=== PATIENT | male | born 1950 | race Caucasian/White ===

== ENCOUNTER 2023-12-16 07:39 | Outpatient (OUT) | payer MEDICARE, OTHER, SELFPAY ==
[2023-12-16 08:28] LABS: Basophils Percent Auto 0.6 % (0.2-2.0); Eosinophils Absolute Auto 0.1 10^3/uL (0.0-0.7); Eosinophils Percent Auto 1.1 % (0.9-7.0); Hematocrit 42.2 % (42.0-54.0); Hemoglobin 14.1 g/dL (14.0-18.0); Immature Granulocytes Abs Auto 0.02 10^3/uL (0.00-0.03); Immature Granulocytes Pct Auto 0.3 % (0.0-0.5); Lymphocytes Absolute Auto 2.3 10^3/uL (1.2-3.8); Lymphocytes Percent Auto 33.2 % (20.5-60.0); Mean Corpuscular HGB Conc 33.4 g/dL (29.9-35.2); Mean Corpuscular Hemoglobin 32.3 pg (25.9-34.0); Mean Corpuscular Volume 96.6 fL (80.0-94.0); Mean Platelet Volume 11.7 fL (9.5-13.5); Monocytes Absolute Auto 0.7 10^3/uL (0.3-0.8); Monocytes Percent Auto 10.1 % (1.7-12.0); Neutrophils Absolute Auto 3.8 10^3/uL (1.4-6.5); Neutrophils Percent Auto 54.7 % (43.0-75.0); Platelet Count 184 10^3/uL (150-450); Red Blood Count 4.37 10^6/uL (4.70-6.10); Red Cell Distribution Width 12.5 % (11.0-15.0)
[2023-12-16 09:32] LABS: Estimated Average Glucose 114 mg/dL; Glycohemoglobin A1C 5.6 % (4.5-6.2)
[2023-12-16 10:44] LABS: Prostate Specific Antigen Scrn 5.79 ng/mL (<=4.00)
[2023-12-16 10:51] LABS: Alanine Aminotransferase 27 U/L (16-63); Albumin Globulin Ratio 1.1; Albumin Level 3.5 g/dL (3.4-5.0); Alkaline Phosphatase 58 U/L (46-116); Aspartate Amino Transferase 22 U/L (15-37); BUN Creatinine Ratio 17.4; Bilirubin Total 0.6 mg/dL (0.2-1.0); Calcium 8.9 mg/dL (8.5-10.1); Carbon Dioxide 27.1 mmol/L (21.0-32.0); Chloride 102 mmol/L (98-107); Chol HDL Ratio 2.8; Cholesterol 171 mg/dL (<=200); Estimated GFR (African America >60 (>=60); Estimated GFR (Non-African Ame >60 (>=60); Free T3 2.49 pg/mL (2.18-3.98); Globulin 3.2 g/dL; Glucose 99 mg/dL (74-106); HDL Cholesterol 61 mg/dL (40-60); Potassium 4.1 mmol/L (3.5-5.1); Sodium 138 mmol/L (136-145); Thyroid Stimulating Hormone 2.691 uIU/mL (0.358-3.740); Total Protein 6.7 g/dL (6.4-8.2); Triglycerides 50 mg/dL (<=150)
[2023-12-17 04:07] LABS: PSA, Free 0.79 ng/mL; Prostate Specific Ag 5.3 ng/mL (0.0-4.0)
== END 2023-12-16 07:40 | disposition home or self-care (01) ==
LOC: LAB 07:43
PROVIDERS: PCP Family Medicine; Visit Provider Family Medicine
DX: E78.00 Pure hypercholesterolemia, unspecified (principal); F32.9 Major depressive disorder, single episode, unspecified; E78.5 Hyperlipidemia, unspecified; R73.9 Hyperglycemia, unspecified; Z12.5 Encounter for screening for malignant neoplasm of prostate; Z12.12 Encounter for screening for malignant neoplasm of rectum; R97.20 Elevated prostate specific antigen [PSA]
CPT/HCPCS: 36415; 80053; 80061; 83036; 84153; 84154; 84436; 84443; 84481; 85025; G0103

== ENCOUNTER 2023-12-26 08:00 | Outpatient (REF) | payer MEDICARE, OTHER, SELFPAY ==
--- OUTSIDE RECORDS SUMMARY | 2023-12-27 10:03 | XMS_ITS | CCD ---
Author Organization [facility] Care Team Providers Care Chemist Name Role Phone MUSHTAQY ., DR SMITH Admitting Unavailable HOY ., DR SMITH Attending Unavailable HOY ., DR SMITH Primary Care Unavailable HOY ., DR SMITH Admitting Unavailable HOY ., DR SMITH Attending Unavailable HOY ., DR SMITH Primary Care Unavailable HOY ., DR SMITH Consulting Unavailable HOY ., DR SMITH Admitting Unavailable HOY ., DR SMITH Attending Unavailable HOY ., DR SMITH Primary Care Unavailable HOY ., DR SMITH Consulting Unavailable Preston GR Attending Unavailable Luis Miramontes Referring Unavailable Allergies Allergy Classification Reported Allergen(s) Allergy Type Date of Onset Reaction(s) Facility (1 source) Unable to obtain; Translations: [Unable to obtain] Propensity to adverse reactions (disorder) [facility] Repository Problems Problem Classification Problem Date Documented Date Episodic/Chronic Diabetes mellitus without complication (1 source) Other abnormal glucose; Translations: [OTHER ABNORMAL GLUCOSE] Onset: 3 Episodic Disorders of lipid metabolism (4 sources) Pure hypercholesterolemia, unspecified; Translations: [PURE HYPERCHOLESTEROLEMIA UNSPEC] Onset: 3 Chronic Malaise and fatigue (1 source) Other fatigue; Translations: [OTHER FATIGUE] Onset: 3 Episodic Other screening for suspected conditions (not mental disorders or infectious disease) (6 sources) Encounter for screening for malignant neoplasm of rectum; Translations: [Encounter for screening for malignant neoplasm of prostate] Onset: 3 Episodic Results Test Name Value Interpretation Reference Range Facil ity OCC BLD IMMUNO SCREENon OCCULT BLOOD Negative Normal NEGATIVE [facility] Comment on above: Performed By: #### O BSCRN #### [facility] [address] [address] [address] Sylvia Ham CBC AUTO DIFFon 02-23-2023 BASO # 0.0 103/ul Normal 0.0-0.1 [facility] Comment on above: Performed By: #### C BC #### [facility] [address] [place] [address] Dr. Sylvia Ham Basophils/100 WBC (Bld) 0.4 % Normal 0.2-2.0 [facility] Comment on above: Performed By: #### C BC #### [facility] [address] [place] [address] Dr. Sylvia Ham EO # 0.1 103/ul Normal 0.0-0.7 [facility] Comment on above: Performed By: #### C BC #### [facility] [address] [place] [address] Dr. Sylvia Ham Eosinophils/100 WBC (Bld) 1.1 % Normal 0.9-7.0 [facility] Comment on above: Performed By: #### C BC #### [facility] [address] [place] [address] Dr. Sylvia Ham Erythrocyte distribution width (RBC) [Ratio] 12.8 % Normal 11.0-15.0 [facility] Comment on above: Performed By: #### C BC #### [facility] [address] [place] [address] Dr. Sylvia Ham Hematocrit (Bld) [Volume fraction] 43.6 % Normal 42.0-54.0 [facility] Comment on above: Performed By: #### C BC #### [facility] [address] [place] [address] Dr. Sylvia Ham Hemoglobin (Bld) [Mass/Vol] 15.1 g/dL Normal 14.0-18.0 [facility] Comment on above: Performed By: #### C BC #### [facility] [address] [place] [address] Dr. Sylvia Ham IG # 0.01 10e3/ul Normal 0.00-0.03 [facility] Comment on above: Performed By: #### C BC #### [facility] [address] [place] [address] Dr. Sylvia Ham IG % 0.1 % Normal 0.0-0.5 [facility] Comment on above: Performed By: #### C BC #### [facility] [address] [place] [address] Dr. Sylvia Ham LYMPH # 2.2 103/ul Normal 1.2-3.8 [facility] Comment on above: Performed By: #### C BC #### [facility] [address] [place] [address] Dr. Sylvia Ham Lymphocytes/100 WBC (Bld) 26.9 % Normal 20.5-60.0 [facility] Comment on above: Performed By: #### C BC #### [facility] [address] [place] [address] Dr. Sylvia Ham MANUAL DIFF REQ NO Normal [facility] Comment on above: Performed By: #### C BC #### [facility] [address] [place] [address] Dr. Sylvia Ham MCH (RBC) [Entitic mass] 32.7 pg Normal 25.9-34.0 [facility] Comment on above: Performed By: #### C BC #### [facility] [address] [place] [address] Dr. Sylvia Ham MCHC (RBC) [Mass/Vol] 34.6 g/dL Normal 29.9-35.2 [facility] Comment on above: Performed By: #### C BC #### [facility] [address] [place] [address] Dr. Sylvia Ham MCV (RBC) [Entitic vol] 94.4 fL Critically high 80.0-94.0 [facility] Comment on above: Performed By: #### C BC #### [facility] [address] [place] [address] Dr. Sylvia Ham MONO # 0.7 103/ul Normal 0.3-0.8 [facility] Comment on above: Performed By: #### C BC #### [facility] [address] [place] [address] Dr. Sylvia Ham Monocytes/100 WBC (Bld) 9.3 % Normal 1.7-12.0 [facility] Comment on above: Performed By: #### C BC #### [facility] [address] [address] [address] Sylvia Ham NEUT # 5.0 103/ul Normal 1.4-6.5 [facility] Comment on above: Performed By: #### C BC #### [facility] [address] [address] [address] Sylvia Ham Neutrophils/100 WBC (Bld) 62.2 % Normal 43.0-75.0 [facility] Comment on above: Performed By: #### C BC #### [facility] [address] [address] [address] Sylvia Ham Platelet mean volume (Bld) [Entitic vol] 11.4 fL Normal 9.5-13.5 [facility] Comment on above: Performed By: #### C BC #### [facility] [address] [address] [address] Sylvia Ham PLT 189 103/ul Normal 150-450 [facility] Comment on above: Performed By: #### C BC #### [facility] [address] [address] [address] Sylvia Ham RBC 4.62 106/ul Critically low 4.70-6.10 [facility] Comment on above: Performed By: #### C BC #### [facility] [address] [address] [address] Sylvia Ham WBC 8.0 103/ul Normal 4.0-11.0 [facility] Comment on above: Performed By: #### C BC #### [facility] [address] [address] [address] Sylvia Ham FREE T3on 11-26-2022 FREE T3 2.47 pg/mlL Normal 2.18-3.98 [facility] Comment on above: Performed By: #### L IPID, TSH, CMP, T4, FT3 #### [facility] [address] [address] [address] Sylvia Ham GLYCOHEMOGLOBIN A1Con 2022 ADA RECOMMENDATION SEE BELOW Normal [facility] Comment on above: Result Comment: ADA RECOMMENDED LIMIT 4.0 - 6.0 ADA THERAPEUTIC TARGET < 7.0 ACTION SUGGESTED > 7.0 Performed By: #### A 1C #### [facility] [address] [place] [address] Dr. Sylvia Ham Glucose [Mass/Vol] 105 mg/dL Normal [facility] Comment on above: Performed By: #### A 1C #### [facility] [address] [place] [address] Dr. Sylvia Ham HbA1c (Bld) [Mass fraction] 5.3 % Normal 4.5-6.2 [facility] Comment on above: Performed By: #### A 1C #### [facility] [address] [place] [address] Dr. Sylvia Ham LIPID PROFILEon 11-26-2022 CHOL-HDL RATIO NORM SEE BELOW Normal [facility] Comment on above: Result Comment: 3.3 - 4.4 LOW RISK 4.4 - 7.1 AVERAGE RISK 7.1 - 11.0 MODERATE RISK >11.0 HIGH RISK Performed By: #### L IPID, TSH, CMP, T4, FT3 #### [facility] [address] [place] [address] Dr. Sylvia Ham Cholesterol [Mass/Vol] 164 mg/dL Normal <=200 [facility] Comment on above: Performed By: #### L IPID, TSH, CMP, T4, FT3 #### [facility] [address] [place] [address] Dr. Sylvia Ham Cholesterol in HDL [Mass/Vol] 55 mg/dL Normal 40-60 [facility] Comment on above: Performed By: #### L IPID, TSH, CMP, T4, FT3 #### [facility] [address] [address] [address] Sylvia Ham Cholesterol in LDL [Mass/Vol] 98.0 mg/dL Normal [facility] Comment on above: Performed By: #### L IPID, TSH, CMP, T4, FT3 #### [facility] [address] [place] [address] Dr. Sylvia Ham Cholesterol.total/Cho lesterol in HDL [Mass ratio] 3.0 {ratio} Normal [facility] Comment on above: Performed By: #### L IPID, TSH, CMP, T4, FT3 #### [facility] [address] [address] [address] Sylvia Ham HDL NORMAL > or = 60 mg/dl - LOW CARDIOVASCULAR RISK <40 mg/dl - HIGH CARDIOVASCULAR RISK Normal [facility] Comment on above: Performed By: #### L IPID, TSH, CMP, T4, FT3 #### [facility] [address] [address] [address] Sylvia Ham LDL CALC NORMAL SEE BELOW Normal [facility] Comment on above: Result Comment: <100 mg/dl OPTIMAL 100 - 129 mg/dl NEAR OR ABOVE OPTIMAL 130 - 159 mg/dl BORDERLINE HIGH 160 - 189 mg/dl HIGH >190 mg/dl VERY HIGH Performed By: #### L IPID, TSH, CMP, T4, FT3 #### [facility] [address] [address] [address] Sylvia Ham Triglyceride [Mass/Vol] 55 mg/dL Normal <=150 [facility] Comment on above: Performed By: #### L IPID, TSH, CMP, T4, FT3 #### [facility] [address] [address] [address] Sylvia Ham VLDL CALC 11.0 mg/dL Normal [facility] Comment on above: Performed By: #### L IPID, TSH, CMP, T4, FT3 #### [facility] [address] [address] [address] Sylvia Ham PROF 14(COMP METB)on 023 Albumin [Mass/Vol] 3.8 g/dL Normal 3.4-5.0 [facility] Comment on above: Performed By: #### L IPID, TSH, CMP, T4, FT3 #### [facility] [address] [address] [address] Sylvia Ham Albumin/Globulin [Mass ratio] 1.3 {ratio} Normal [facility] Comment on above: Performed By: #### L IPID, TSH, CMP, T4, FT3 #### [facility] [address] [place] [address] Dr. Sylvia Ham ALP [Catalytic activity/Vol] 66 U/L Normal 46-116 [facility] Comment on above: Performed By: #### L IPID, TSH, CMP, T4, FT3 #### [facility] [address] [place] [address] Dr. Sylvia Ham ALT [Catalytic activity/Vol] 29 U/L Normal 16-63 [facility] Comment on above: Performed By: #### L IPID, TSH, CMP, T4, FT3 #### [facility] [address] [place] [address] Dr. Sylvia Ham Anion gap [Moles/Vol] 9.7 mmol/L Normal [facility] Comment on above: Performed By: #### L IPID, TSH, CMP, T4, FT3 #### [facility] [address] [place] [address] Dr. Sylvia Ham AST [Catalytic activity/Vol] 25 U/L Normal 15-37 [facility] Comment on above: Performed By: #### L IPID, TSH, CMP, T4, FT3 #### [facility] [address] [place] [address] Dr. Sylvia Ham Bilirubin [Mass/Vol] 0.6 mg/dL Normal 0.2-1.0 [facility] Comment on above: Performed By: #### L IPID, TSH, CMP, T4, FT3 #### [facility] [address] [place] [address] Dr. Sylvia Ham Calcium [Mass/Vol] 9.2 mg/dL Normal 8.5-10.1 [facility] Comment on above: Performed By: #### L IPID, TSH, CMP, T4, FT3 #### [facility] [address] [place] [address] Dr. Sylvia Ham Chloride [Moles/Vol] 105 mmol/L Normal 98-107 [facility] Comment on above: Performed By: #### L IPID, TSH, CMP, T4, FT3 #### [facility] [address] [address] [address] Sylvia Ham CO2 [Moles/Vol] 30.0 mmol/L Normal 21.0-32.0 [facility] Comment on above: Performed By: #### L IPID, TSH, CMP, T4, FT3 #### [facility] [address] [address] [address] Sylvia Ham Creatinine [Mass/Vol] 0.84 mg/dL Normal 0.70-1.30 [facility] Comment on above: Performed By: #### L IPID, TSH, CMP, T4, FT3 #### [facility] [address] [place] [address] Dr. Sylvia Ham EGFR-AF SAMOAN >60 Normal >=60 [facility] Comment on above: Performed By: #### L IPID, TSH, CMP, T4, FT3 #### [facility] [address] [place] [address] Dr. Sylvia Ham EGFR-NON AF SAMOAN >60 Normal >=60 [facility] Comment on above: Performed By: #### L IPID, TSH, CMP, T4, FT3 #### [facility] [address] [place] [address] Dr. Sylvia Ham Globulin (S) [Mass/Vol] 3.0 g/dL Normal [facility] Comment on above: Performed By: #### L IPID, TSH, CMP, T4, FT3 #### [facility] [address] [place] [address] Dr. Sylvia Ham Glucose [Mass/Vol] 107 mg/dL Critically high 74-106 [facility] Comment on above: Performed By: #### L IPID, TSH, CMP, T4, FT3 #### [facility] [address] [place] [address] Dr. Sylvia Ham Potassium [Moles/Vol] 4.7 mmol/L Normal 3.5-5.1 [facility] Comment on above: Performed By: #### L IPID, TSH, CMP, T4, FT3 #### [facility] [address] [place] [address] Dr. Sylvia Ham Protein [Mass/Vol] 6.8 g/dL Normal 6.4-8.2 [facility] Comment on above: Performed By: #### L IPID, TSH, CMP, T4, FT3 #### [facility] [address] [place] [address] Dr. Sylvia Ham Sodium [Moles/Vol] 140 mmol/L Normal 136-145 [facility] Comment on above: Performed By: #### L IPID, TSH, CMP, T4, FT3 #### [facility] [address] [address] [address] Sylvia Ham Urea nitrogen [Mass/Vol] 20.0 mg/dL Critically high 7.0-18.0 [facility] Comment on above: Performed By: #### L IPID, TSH, CMP, T4, FT3 #### [facility] [address] [place] [address] Dr. Sylvia Ham Urea nitrogen/Creatinine [Mass ratio] 23.8 mg/mg Normal [facility] Comment on above: Performed By: #### L IPID, TSH, CMP, T4, FT3 #### [facility] [address] [address] [address] Sylvia Ham T4on 11-26-2022 T4 [Mass/Vol] 7.60 ug/dL Normal 4.50-12.10 [facility] Comment on above: Performed By: #### L IPID, TSH, CMP, T4, FT3 #### [facility] [address] [place] [address] Dr. Sylvia Ham TSHon 11-26-2022 TSH 2.833 uIU/mL Normal 0.358-3.740 [facility] Comment on above: Performed By: #### L IPID, TSH, CMP, T4, FT3 #### [facility] [address] [place] [address] Dr. Sylvia Ham Encounters Encounter Date Encounter Type Care Provider Facility Start: 12-27-2023 ambulatory Preston Harris ty:[facility]ILADIS Bhatia Start: 12-17-2023 ambulatory Preston GR Facility :[facility]IS Muñoz Start: 12-07-2022 End: 12-07-[address] LUIS MIRAMONTES . Facility:[facility] Start: 11-26-2022 End: 11-27-[address] LUIS MIRAMONTES . Facility:[facility] Start: 02-15-[address] LUIS MIRAMONTES . Facili ty:[facility] Procedures Date Procedure Procedure Detail Performing Clinician Start: 11-26-[address] SMITH MIRAMONTES . Comment on above: Performed By: #### P [facility] #### [facility] [address] [place] [address] Dr. Sylvia Ham Payers Date Payer Category Payer Medicare [id number] 1958 Self-pay [id number] 1958 Unknown [id number] 1950 Unknown [id number] 2.16.84 [id number] 1950 Unknown [id number] 2.16.84 [id number] 1950 Unknown [id number] 2.16.84 [id number] 1950 Unknown [id number] 2.16.8 [id number] 1950 Unknown [id number] 2.16.8 [id number] Summary Purpose Family History No Family History Records FoundNo Family History Records Found Advance Directives No Advanced Directives Records FoundNo Advanced Directives Records Found Additional Source Comments (unrecognized sect ion and content) No Status Records FoundNo Status Records Found INFORMATION SOURCE (unrecogn ized section and content) DATE CREATED AUTHOR 12/09/2022 [facility] DATE CREATED AUTHOR AUTHOR'S FABIIZ ATVERO 12/26/2023 [facility] FOR RECORDS PERTAINING TO PATIENTS WHO ARE OR HAVE BEEN ENROLLED IN A CHEMICAL DEPENDENCY/SUBSTANCEABUSE PROGRAM, SOME INFORMATION MAY BE OMITTED. This clinical summary was aggregated from multiple sources. Caution should be exercised in using it in the provision of clinical care. This summary normalizes information from multiple sources, and as a consequence, information in this document may materially change the coding, format and clinical context of patient data. In addition, data may be omitted in some cases. CLINICAL DECISIONS SHOULD BE BASED ON THE PRIMARY CLINICAL RECORDS. [facility] [employer] [facility]. provides no warranty or guarantee of the accuracy or completeness of information in this document.
[2023-12-27 10:31] LABS: Occult Blood Negative
== END 2023-12-26 08:01 | disposition home or self-care (01) ==
LOC: LAB 08:00
PROVIDERS: PCP Family Medicine; Visit Provider Family Medicine
DX: E78.00 Pure hypercholesterolemia, unspecified (principal); F32.9 Major depressive disorder, single episode, unspecified; R73.9 Hyperglycemia, unspecified; Z12.5 Encounter for screening for malignant neoplasm of prostate; Z12.12 Encounter for screening for malignant neoplasm of rectum
CPT/HCPCS: G0328

== ENCOUNTER 2024-01-19 12:25 | Outpatient (OUT) | payer MEDICARE, OTHER, SELFPAY ==
--- OUTSIDE RECORDS SUMMARY | 2024-01-19 12:48 | XMS_ITS | CCD ---
Author Organization [facility] Care Team Providers Care Senior Project Manager Name Role Phone FE ., DR SMITH Admitting Unavailable HOY ., DR SMITH Attending Unavailable HOY ., DR SMITH Primary Care Unavailable HOY ., DR SMITH Admitting Unavailable HOY ., DR SMITH Attending Unavailable HOY ., DR SMITH Primary Care Unavailable HOY ., DR SMITH Consulting Unavailable HOY ., DR SMITH Admitting Unavailable HOY ., DR SMITH Attending Unavailable HOY ., DR SMITH Primary Care Unavailable MUSHTAQY ., DR SMITH Consulting Unavailable Luis Miramontes Primary Care Physician PENNIE DICKERSON Attending Unavailable Preston GR Attending Unavailable Preston GR Attending Unavailable Luis Miramontes Referring Unavailable Preston GR Attending Unavailable Allergies Allergy Classification Reported Allergen(s) Allergy Type Date of Onset Reaction(s) Facility (1 source) Unable to obtain; Translations: [Unable to obtain] Propensity to adverse reactions (disorder) [facility] Repository Medications Current Medications Medication Drug Class(es) Dates Sig (Normalized) Sig (Original) aspirin 81 mg delayed release oral tablet (1 source) Platelet Aggregation Inhibitor, Nonsteroidal Anti-inflammatory Drug Start: 12-27-2023 take 1 mg by mouth once daily aspirin 81 mg Oral EC Tab mg tab(s), Oral, Daily, Refills(s) 0 Start Date: 12/27/23 Status: Ordered ciprofloxacin 500 mg oral tablet (1 source) Quinolone Antimicrobial Start: 12-27-2023 take 1 tablet by mouth twice daily Cipro 500 mg Tab 500 mg = 1 tab(s), Oral, BID, start 3 days prior to procedure., # 14 tab(s), Refills(s) 0, Pharmacy: [facility]/pharmacy #[id number], 178, cm, 12/27/23 10:08:00 EDT, Height/Length Dosing, 116, kg, 12/27/23 10:08:00 EDT, Weight Dosing Start Date: 12/27/23 Status: Ordered Completed/Discontinued Medications Medication Drug Class(es) Dates Sig (Normalized) Sig (Original) citalopram 10 mg oral tablet (1 source) Serotonin Reuptake Inhibitor Start: 12-23-2023 citalopram 10 mg Tab 90 EA, 0 Refill(s), TAKE 1 TABLET BY MOUTH EVERY DAY, Refills(s) 0 Start Date: 12/23/23 Status: Ordered simvastatin 20 mg oral tablet (1 source) HMG-CoA Reductase Inhibitor Start: 12-23-2023 simvastatin 20 mg Tab 90 EA, 0 Refill(s), TAKE 1 TABLET BY MOUTH ONCE EVERY DAY AT NIGHT, Refills(s) 0 Start Date: 12/23/23 Status: Ordered Problems Problem Classification Problem Date Documented Da te Episodic/Chronic Diabetes mellitus without complication (1 source) Other abnormal glucose; Translations: [OTHER ABNORMAL GLUCOSE] Onset: 11-30-2022 Episodic Disorders of lipid metabolism (5 sources) Pure hypercholesterolemi a, unspecified; Translations: [Hyperlipidemia] Onset: 05-31-2020 Chronic Hyperplasia of prostate (2 sources) Benign prostatic hypertrophy without outflow obstruction; Translations: [Nodular prostate without lower urinary tract symptoms] Onset: 12-27-2023 Chronic Malaise and fatigue (1 source) Other fatigue; Translations: [OTHER FATIGUE] Onset: 11-30-2022 Episodic Other aftercare (1 source) Long-term current use of aspirin; Translations: [prison (current) use of aspirin] Onset: 12-27-2023 Episodic Other nervous system disorders (1 source) Aphasia Onset: 05-31-2020 12-23-2023 Chronic Other screening for suspected conditions (not mental disorders or infectious disease) (8 sources) Encounter for screening for malignant neoplasm of rectum; Translations: [Encounter for screening for malignant neoplasm of prostate] Onset: 11-30-2022 Episodic Paralysis (1 source) 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-23-2023 Chronic Unclassified (1 source) Long-term current use of aspirin 12-27-2023 Results Test Name Value Interpretation Reference Range Facility Consent for Procedure/Surger kalyan 12-28-2023 Consent for Procedure/Surgery [id number] .00TIFF [facility] Ambulatory Visit Summaryon 0 12-27-2023 Ambulatory Visit Summary OG SINGLETARY :1950 Visit Date:12/27/2023 Ambulatory Visit Instructions Your Diagnosis Elevated PSA Prostate nodule Aspirin long-term use Your Care Team Attending Physician - Preston GR MD Primary Care Physician - Luis Miramontes MD Referring Physician - Luis Miramontes MD This Is Your Medications List ciprofloxacin (Cipro 500 mg Tab) Contact prescribing physician if questions or concerns aspirin (aspirin 81 mg Oral EC Tab) citalopram (citalopram 10 mg Tab) simvastatin (simvastatin 20 mg Tab) Discharge Vitals Temperature (Temporal Artery) 36.8 ?C Heart Rate (Peripheral) 101 Respiratory Rate 18 Blood Pressure 138/75 Height 178 cm Height 70 in Weight 116 kg Weight 255.2 lb BMI 36.61 What to do next Scheduled Follow-Up Appointments Wednesday 9:15 AM EDT With: Preston GR MD Where: [facility] Formson 12-27-2023 Forms [id number] .00TIFF [facility] Patient Educationon 12-27-19 24 Patient Education Oncology Transrectal Ultrasound-Guided Prostate Biopsy A transrectal ultrasound-guided prostate biopsy is a procedure to remove samples of prostate tissue for testing. The prostate is a walnut-sized gland that is located below the bladder and in front of the rectum. During this procedure, a small device (probe) is lubricated and put inside the rectum. The probe sends out sound waves that make a picture of the prostate and surrounding tissues (transrectal ultrasound). The images are used to help guide the process of removing the samples. The samples are taken to a lab to be checked for prostate cancer. This procedure is usually done to evaluate the prostate gland of men who have raised (elevated) levels of prostate-specific antigen (PSA), which can be a sign of prostate cancer or prostate enlargement related to aging (benign prostatic hyperplasia, or BPH). Tell a health care provider about: ? Any allergies you have. ? All medicines you are taking, including vitamins, herbs, eye drops, creams, and joeo-syr-zczvvff medicines. ? Any problems you or family members have had with anesthetic medicines. ? Any bleeding problems you have. ? Any surgeries you have had. ? Any medical conditions you have. ? Any prostate infections you have had. What are the risks? Generally, this is a safe procedure. However, problems may occur, including: ? Prostate infection. ? Bleeding from the rectum. ? Blood in the urine. ? Allergic reactions to medicines. ? Damage to surrounding structures such as blood vessels, organs, or muscles. ? Difficulty passing urine. ? Nerve damage. This is usually temporary. What happens before the procedure? Medicines Ask your health care provider about: ? Changing or stopping your regular medicines. This is especially important if you are taking diabetes medicines or blood thinners. ? Taking medicines such as aspirin and ibuprofen. These medicines can thin your blood. Do not take these medicines unless your health care provider tells you to take them. ? Taking wbfk-bou-icxxozq medicines, vitamins, herbs, and supplements. General instructions ? Follow instructions from your health care provider about eating and drinking. In most instances, you will not need to stop eating and drinking completely before the procedure. ? You will be given an enema. During an enema, a liquid is injected into your rectum to clear out waste. ? You may have a blood or urine sample taken. ? Ask your health care provider what steps will be taken to help prevent infection. These steps may include: ? Washing skin with a germ-killing soap. ? Taking antibiotic medicine. ? If you will be going home right after the procedure, plan to have a responsible adult: ? Take you home from the hospital or clinic. You will not be allowed to drive. ? Care for you for the time you are told. What happens during the procedure? ? An IV will be inserted into one of your veins. ? You will be given one or both of the following: ? A medicine to help you relax (sedative). ? A medicine to numb the area (local anesthetic). ? You will be placed on your left side, and your knees will be bent toward your chest. ? A probe with lubricated gel will be placed into your rectum, and images will be taken of your prostate and surrounding structures. ? Numbing medicine will be injected into your prostate. ? A biopsy needle will be inserted through your rectum or perineum and guided to your prostate using the ultrasound images. ? Prostate tissue samples will be removed, and the needle and probe will then be removed. ? The biopsy samples will be sent to a lab to be tested. The procedure may vary among health care providers and hospitals. What happens after the procedure? ? Your blood pressure, heart rate, breathing rate, and blood oxygen level will be monitored until you leave the hospital or clinic. ? You may have some discomfort in the rectal area. You will be given pain medicine as needed. ? If you were given a sedative during the procedure, it can affect you for several hours. Do not drive or operate machinery until your health care provider says that it is safe. ? It is up to you to get the results of your procedure. Ask your health care provider, or the department that is doing the procedure, when your results will be ready. ? Keep all follow-up visits. This is important. Summary ? A transrectal ultrasound-guided biopsy removes samples of tissue from your prostate using ultrasound-guided sound waves to help guide the process. ? This procedure is usually done to evaluate the prostate gland of men who have raised (elevated) levels of prostate-specific antigen (PSA), which can be a sign of prostate cancer or prostate enlargement related to aging. ? After your procedure, you may feel some discomfort in the rectal area. ? Plan to have a responsible adult take you home from the hospital or clinic, and follow up with y (more content not included)... Normal [facility] Physician Referralon 024 Physician Referral [id number] .00TIFF Normal [facility] Screenson 12-27-2023 Screens [id number] .00TIFF Normal [facility] Urology Office/Clinic Noteon 12-27-2023 Urology Office/Clinic Note Chief Complaint elevated PSA HPI Staff Evaluation requested by Dr Luis Miramontes due to elevated PSA. Pt is a new pt. Never before seen in our office. PSA 05/17/20- 2.15 12/16/23- 5.79 12/16/23- 5.3 & 14.9 IPSS score is 4 today Dysuria: no Incomplete bladder emptying: no Hematuria: no Frequency: less than 1 in 5x per IPSS Urgency: no Nocturia: 1x Stream: weak and straining less than 1 in 5x, no intermittency Leaking: no Post void dripping: no Wearing pads/ Depends: no Urge incontinence: no Stress incontinence: no Incontinence without Sensory Awareness: no Abdominal pain: no Flank pain: no Sexual complaints: no History of Present Illness Tests reviewed: reviewed UA and outside records. I have reviewed the previous health record information and history for this patient from external provider. I have reviewed and verified the staff HPI to be accurate for this encounter. There have been no associated fever, chills, flank pain, or blood in the urine. Denies any urinary infections since last encounter. Review of Systems PHQ Score Initial Depression Screen Score: 0 SCORE ROS - Provider Constitutional: denies weight loss, denies hot flashes. Eyes: denies eye problems. Gastrointestinal: denies nausea, denies vomiting. Cardiovascular: denies chest pain or angina. Integumentary: no dryness Musculoskeletal: denies musculoskeletal symptoms. ENMT: denies otolaryngeal symptoms. Respiratory: no shortness of breath. Heme/Lymph: denies easy bleeding tendency, denies easy bruising tendency. Psychiatric: no confusion, no anxiety. Genitourinary: See HPI. Physical Exam Vitals & Measurements T: 36.8 ?C(Temporal Artery) HR: 101(Peripheral) RR: 18 BP: 138/75 HT: 70 in HT: 178 cm WT: 116 kg WT: 255.2 lb BMI: 36.61 General Appearance: alert, no distress, well nourished, well developed male. Prostate: R mid and apex rock hard on exam. Assessment/Plan Og is a 73 [address] male referred by Dr. Miramontes for elevated PSA. Pt here with today. 1. Elevated PSA (R97.20: Elevated prostate specific antigen [PSA]) PSA: 05/17/20 - 2.15 12/16/23 - 5.79 12/16/23 - 5.3 & 14.9 IPSS 4 UA today neg Neg family hx of prostate cancer. Most recent ZEINAB was years ago. ZEINAB today abnormal. See #2. He has an elevated PSA, which could indicate prostate cancer, prostate infection, prostate inflammation without infection, prostate manipulation, or benign prostate enlargement (BPH). The importance of the rate of PSA rise has also been discussed. The options for management have been discussed, including prostate biopsy versus close monitoring of the PSA over time. Explained to pt the only way prostate cancer is confirmed is through a bx. Discussed scheduling an MRI of prostate, however they are not perfect and it does not take place of TRUS/bx. Pt elects to proceed. -Will schedule TRUS/bx under local. Abx sent. The procedural risks, benefits, details, and treatment alternatives have been discussed with the patient. These include minimal to severe bleeding, infection, blood in the semen, inability to urinate, and severe infection requiring hospitalization and IV antibiotics, among others. Full informed consent has been obtained. 2. Prostate nodule (N40.2: Nodular prostate without lower urinary tract symptoms) ZEINAB: R mid and apex rock hard on exam. See #1 3. Aspirin long-term use (Z79.82: joint terminal attack controller (current) use of aspirin) Will need held prior to procedures. Follow-up With When Contact Information MAILE ESPINOSA, Preston Mahoney, URL [address] [place] [address]- Additional Instructions: Schedule TRUS/bx under local Patient Education Transrectal Ultrasound-Guided Prostate Biopsy Leonela Oakley, personally scribed for Dr. Gr on 12/27/2023 10:56:16. . Documentation recorded by the scribe, Leonela Gutierrez, accurately reflects the services(s) I performed and decisions made by me. Authenticated by Dr. Gr on 12/27/2023 10:59:51. 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 Drinks more than intended: No. Others hurt by drinking: No. Ready to change: No., 12/27/2023 Substance Abuse - Denies Substance Abuse, 12/27/2023 Tobacco Former smoker, quit more than 30 days ago Tobacco Use:. Never Smokeless Tobacco Use:. Cigarettes, Household tobacco concerns: No. Yes, 12/27/2023 Immunizations Vaccine Date Status Comments SARS-CoV-2 (COVID-19) mRNA-1273 vaccine 08/13/2021 Given Prophylaxis SARS-CoV-2 (COVID-19) mRNA-1273 (more content not included)... Normal [facility] Comment on above: Result Comment: Elec tronically Signed By: Preston GR MD\.br\Date and Time Signed: 12/27/23 10:59 EDT\.br\Electronically Co-Signed By: Leonela Gutierrez\.br\Date and Time Co-Signed: 12/27/23 10:56 EDT OCC BLD IMMUNO SCREENon OCCULT BLOOD Negative Normal NEGATIVE [facility] Comment on above: Performed By: #### O BSCRN #### [facility] [address] [place] [address] Dr. Sylvia Ham CBC AUTO DIFFon 11-26-2022 BASO # 0.0 103/ul Normal 0.0-0.1 [facility] Comment on above: Performed By: #### C BC #### [facility] [address] [place] [address] Dr. Sylvia Ham Basophils/100 WBC (Bld) 0.4 % Normal 0.2-2.0 [facility] Comment on above: Performed By: #### C BC #### [facility] [address] [place] [address] Dr. Sylvia Ham EO # 0.1 103/ul Normal 0.0-0.7 [facility] Comment on above: Performed By: #### C BC #### [facility] [address] [place] [address] Dr. Sylvia Ham Eosinophils/100 WBC (Bld) 1.1 % Normal 0.9-7.0 [facility] Comment on above: Performed By: #### C BC #### [facility] [address] [place] [address] Dr. Sylvia Ham Erythrocyte distribution width (RBC) [Ratio] 12.8 % Normal 11.0-15.0 [facility] Comment on above: Performed By: #### C BC #### [facility] [address] [place] [address] Dr. Sylvia Ham Hematocrit (Bld) [Volume fraction] 43.6 % Normal 42.0-54.0 [facility] Comment on above: Performed By: #### C BC #### [facility] [address] [place] [address] Dr. Sylvia Ham Hemoglobin (Bld) [Mass/Vol] 15.1 g/dL Normal 14.0-18.0 [facility] Comment on above: Performed By: #### C BC #### [facility] [address] [place] [address] Dr. Sylvia Ham IG # 0.01 10e3/ul Normal 0.00-0.03 [facility] Comment on above: Performed By: #### C BC #### [facility] [address] [place] [address] Dr. Sylvia Ham IG % 0.1 % Normal 0.0-0.5 [facility] Comment on above: Performed By: #### C BC #### [facility] [address] [place] [address] Dr. Sylvia Ham LYMPH # 2.2 103/ul Normal 1.2-3.8 [facility] Comment on above: Performed By: #### C BC #### [facility] [address] [place] [address] Dr. Sylvia Ham Lymphocytes/100 WBC (Bld) 26.9 % Normal 20.5-60.0 [facility] Comment on above: Performed By: #### C BC #### [facility] [address] [place] [address] Dr. Sylvia Ham MANUAL DIFF REQ NO Normal [facility] Comment on above: Performed By: #### C BC #### [facility] [address] [place] [address] Dr. Sylvia Ham MCH (RBC) [Entitic mass] 32.7 pg Normal 25.9-34.0 [facility] Comment on above: Performed By: #### C BC #### [facility] [address] [address] [address] Sylvia Ham MCHC (RBC) [Mass/Vol] 34.6 g/dL Normal 29.9-35.2 [facility] Comment on above: Performed By: #### C BC #### [facility] [address] [address] [address] Sylvia Ham MCV (RBC) [Entitic vol] 94.4 fL Critically high 80.0-94.0 [facility] Comment on above: Performed By: #### C BC #### [facility] [address] [place] [address] Dr. Sylvia Ham MONO # 0.7 103/ul Normal 0.3-0.8 [facility] Comment on above: Performed By: #### C BC #### [facility] [address] [place] [address] Dr. Sylvia Ham Monocytes/100 WBC (Bld) 9.3 % Normal 1.7-12.0 [facility] Comment on above: Performed By: #### C BC #### [facility] [address] [place] [address] Dr. Sylvia Ham NEUT # 5.0 103/ul Normal 1.4-6.5 [facility] Comment on above: Performed By: #### C BC #### [facility] [address] [place] [address] Dr. Sylvia Ham Neutrophils/100 WBC (Bld) 62.2 % Normal 43.0-75.0 [facility] Comment on above: Performed By: #### C BC #### [facility] [address] [place] [address] Dr. Sylvia Ham Platelet mean volume (Bld) [Entitic vol] 11.4 fL Normal 9.5-13.5 [facility] Comment on above: Performed By: #### C BC #### [facility] [address] [address] [address] Sylvia Ham PLT 189 103/ul Normal 150-450 [facility] Comment on above: Performed By: #### C BC #### [facility] [address] [address] [address] Sylvia Ham RBC 4.62 106/ul Critically low 4.70-6.10 [facility] Comment on above: Performed By: #### C BC #### [facility] [address] [address] [address] Sylvia Ham WBC 8.0 103/ul Normal 4.0-11.0 [facility] Comment on above: Performed By: #### C BC #### [facility] [address] [place] [address] Dr. Sylvia Ham FREE T3on 11-26-2022 FREE T3 2.47 pg/mlL Normal 2.18-3.98 [facility] Comment on above: Performed By: #### L IPID, TSH, CMP, T4, FT3 #### [facility] [address] [place] [address] Dr. Sylvia Ham GLYCOHEMOGLOBIN A1Con 2022 ADA RECOMMENDATION SEE BELOW Normal [facility] Comment on above: Result Comment: ADA RECOMMENDED LIMIT 4.0 - 6.0 ADA THERAPEUTIC TARGET < 7.0 ACTION SUGGESTED > 7.0 Performed By: #### A 1C #### [facility] [address] [place] [address] Dr. Sylvia Ham Glucose [Mass/Vol] 105 mg/dL Normal [facility] Comment on above: Performed By: #### A 1C #### [facility] [address] [place] [address] Dr. Sylvia Ham HbA1c (Bld) [Mass fraction] 5.3 % Normal 4.5-6.2 [facility] Comment on above: Performed By: #### A 1C #### [facility] [address] [place] [address] Dr. Sylvia Ham LIPID PROFILEon 11-26-2022 CHOL-HDL RATIO NORM SEE BELOW Normal [facility] Comment on above: Result Comment: 3.3 - 4.4 LOW RISK 4.4 - 7.1 AVERAGE RISK 7.1 - 11.0 MODERATE RISK >11.0 HIGH RISK Performed By: #### L IPID, TSH, CMP, T4, FT3 #### [facility] [address] [address] [address] Sylvia Ham Cholesterol [Mass/Vol] 164 mg/dL Normal <=200 [facility] Comment on above: Performed By: #### L IPID, TSH, CMP, T4, FT3 #### [facility] [address] [address] [address] Sylvia Ham Cholesterol in HDL [Mass/Vol] 55 mg/dL Normal 40-60 [facility] Comment on above: Performed By: #### L IPID, TSH, CMP, T4, FT3 #### [facility] [address] [address] [address] Sylvia Ham Cholesterol in LDL [Mass/Vol] 98.0 mg/dL Normal [facility] Comment on above: Performed By: #### L IPID, TSH, CMP, T4, FT3 #### [facility] [address] [address] [address] Sylvia Ham Cholesterol.total/Cho lesterol in HDL [Mass ratio] 3.0 {ratio} Normal [facility] Comment on above: Performed By: #### L IPID, TSH, CMP, T4, FT3 #### [facility] [address] [address] [address] Sylvia Ham HDL NORMAL > or = 60 mg/dl - LO W CARDIOVASCULAR RISK <40 mg/dl - HIGH CARDIOVASCULAR RISK Normal [facility] Comment on above: Performed By: #### L IPID, TSH, CMP, T4, FT3 #### [facility] [address] [address] [address] Sylvia Ham LDL CALC NORMAL SEE BELOW Normal [facility] Comment on above: Result Comment: <100 mg/dl OPTIMAL 100 - 129 mg/dl NEAR OR ABOVE OPTIMAL 130 - 159 mg/dl BORDERLINE HIGH 160 - 189 mg/dl HIGH >190 mg/dl VERY HIGH Performed By: #### L IPID, TSH, CMP, T4, FT3 #### [facility] [address] [address] [address] Sylvia Ham Triglyceride [Mass/Vol] 55 mg/dL Normal <=150 [facility] Comment on above: Performed By: #### L IPID, TSH, CMP, T4, FT3 #### [facility] [address] [place] [address] Dr. Sylvia Hma VLDL CALC 11.0 mg/dL Normal [facility] Comment on above: Performed By: #### L IPID, TSH, CMP, T4, FT3 #### [facility] [address] [place] [address] Dr. Sylvia Ham PROF 14(COMP METB)on 023 Albumin [Mass/Vol] 3.8 g/dL Normal 3.4-5.0 [facility] Comment on above: Performed By: #### L IPID, TSH, CMP, T4, FT3 #### [facility] [address] [place] [address] Dr. Sylvia Ham Albumin/Globulin [Mass ratio] 1.3 {ratio} Normal [facility] Comment on above: Performed By: #### L IPID, TSH, CMP, T4, FT3 #### [facility] [address] [place] [address] Dr. Sylvia Ham ALP [Catalytic activity/Vol] 66 U/L Normal 46-116 [facility] Comment on above: Performed By: #### L IPID, TSH, CMP, T4, FT3 #### [facility] [address] [place] [address] Dr. Sylvia Ham ALT [Catalytic activity/Vol] 29 U/L Normal 16-63 [facility] Comment on above: Performed By: #### L IPID, TSH, CMP, T4, FT3 #### [facility] [address] [place] [address] Dr. Sylvia Ham Anion gap [Moles/Vol] 9.7 mmol/L Normal [facility] Comment on above: Performed By: #### L IPID, TSH, CMP, T4, FT3 #### [facility] [address] [place] [address] Dr. Sylvia Ham AST [Catalytic activity/Vol] 25 U/L Normal 15-37 [facility] Comment on above: Performed By: #### L IPID, TSH, CMP, T4, FT3 #### [facility] [address] [address] [address] Sylvia Ham Bilirubin [Mass/Vol] 0.6 mg/dL Normal 0.2-1.0 [facility] Comment on above: Performed By: #### L IPID, TSH, CMP, T4, FT3 #### [facility] [address] [address] [address] Sylvia Ham Calcium [Mass/Vol] 9.2 mg/dL Normal 8.5-10.1 [facility] Comment on above: Performed By: #### L IPID, TSH, CMP, T4, FT3 #### [facility] [address] [address] [address] Sylvia Ham Chloride [Moles/Vol] 105 mmol/L Normal 98-107 [facility] Comment on above: Performed By: #### L IPID, TSH, CMP, T4, FT3 #### [facility] [address] [place] [address] Dr. Sylvia Ham CO2 [Moles/Vol] 30.0 mmol/L Normal 21.0-32.0 [facility] Comment on above: Performed By: #### L IPID, TSH, CMP, T4, FT3 #### [facility] [address] [place] [address] Dr. Sylvia Ham Creatinine [Mass/Vol] 0.84 mg/dL Normal 0.70-1.30 [facility] Comment on above: Performed By: #### L IPID, TSH, CMP, T4, FT3 #### [facility] [address] [place] [address] Dr. Sylvia Ham EGFR-AF AFGHAN >60 Normal >=60 [facility] Comment on above: Performed By: #### L IPID, TSH, CMP, T4, FT3 #### [facility] [address] [place] [address] Dr. Sylvia Ham EGFR-NON AF AFGHAN >60 Normal >=60 [facility] Comment on above: Performed By: #### L IPID, TSH, CMP, T4, FT3 #### [facility] [address] [place] [address] Dr. Sylvia Ham Globulin (S) [Mass/Vol] 3.0 g/dL Normal [facility] Comment on above: Performed By: #### L IPID, TSH, CMP, T4, FT3 #### [facility] [address] [place] [address] Dr. Sylvia Ham Glucose [Mass/Vol] 107 mg/dL Critically high 74-106 [facility] Comment on above: Performed By: #### L IPID, TSH, CMP, T4, FT3 #### [facility] [address] [place] [address] Dr. Sylvia Ham Potassium [Moles/Vol] 4.7 mmol/L Normal 3.5-5.1 [facility] Comment on above: Performed By: #### L IPID, TSH, CMP, T4, FT3 #### [facility] [address] [place] [address] Dr. Sylvia Ham Protein [Mass/Vol] 6.8 g/dL Normal 6.4-8.2 [facility] Comment on above: Performed By: #### L IPID, TSH, CMP, T4, FT3 #### [facility] [address] [place] [address] Dr. Sylvia Ham Sodium [Moles/Vol] 140 mmol/L Normal 136-145 [facility] Comment on above: Performed By: #### L IPID, TSH, CMP, T4, FT3 #### [facility] [address] [place] [address] Dr. Sylvia Ham Urea nitrogen [Mass/Vol] 20.0 mg/dL Critically high 7.0-18.0 [facility] Comment on above: Performed By: #### L IPID, TSH, CMP, T4, FT3 #### [facility] [address] [place] [address] Dr. Sylvia Ham Urea nitrogen/Creatinine [Mass ratio] 23.8 mg/mg Normal [facility] Comment on above: Performed By: #### L IPID, TSH, CMP, T4, FT3 #### [facility] [address] [place], [place] [address] Dr. Sylvia Ham T4on 11-26-2022 T4 [Mass/Vol] 7.60 ug/dL Normal 4.50-12.10 [facility] Comment on above: Performed By: #### L IPID, TSH, CMP, T4, FT3 #### [facility] [address] [address] [address] Sylvia Ham TSHon 11-26-2022 TSH 2.833 uIU/mL Normal 0.358-3.740 [facility] Comment on above: Performed By: #### L IPID, TSH, CMP, T4, FT3 #### [facility] [address] [address] [address] Sylvia Ham Vital Signs Date Time Vital Sign Value Performing Clinician Facility 12-27-2023 10:00-0400 Blood Pressure Location Preston GR [facility] 12-27-2023 10:00-0400 Body temperature 98.24 [degF] Preston GR [facility] 12-27-2023 10:00-0400 Diastolic blood pressure 75 mm[Hg] Preston GR [facility] 12-27-2023 10:00-0400 Heart rate 101 /min Preston GR [facility] 12-27-2023 10:00-0400 Respiratory rate 18 /min Preston GR [facility] 12-27-2023 10:00-0400 Systolic blood pressure 138 mm[Hg] Preston GR [facility] Encounters Encounter Date Encounter Type Care Provider Facility Start: 02-21-2024 ambulatory Preston Laoi ty:[facility] Start: 02-07-2024 ambulatory Preston GR Facili ty:[id number] Start: 01-03-2024 End: 01-03-2024 ambulatory PENNIE DICKERSON Not Available Start: 12-27-2023 End: 12-28-2023 ambulatory Prestonbruce GR Facility:[facility] Start: 12-27-2023 End: 12-27-2023 Patient encounter procedure Preston GR [facility] Start: 12-17-2023 ambulatory Preston GR Facility :[facility] Start: 12-07-2022 End: 12-07-[address] LUIS MIRAMONTES . Facility: Start: 11-26-2022 End: 11-27-[address] LUIS MIRAMONTES . Facility:[facility] Start: 02-15-[address] LUIS MIRAMONTES . Facili ty:[facility] Procedures Date Procedure Procedure Detail Performing Clinician Start: 11-26-[address] SMITH MIRAMONTES . Comment on above: Performed By: #### [facility] [place] [place] #### [facility] [address] [place] [address] Dr. Sylvia Ham Immunizations Immunization Date Immunization Notes Care Provider Carissa gaytan 08-13-2021 SARS-CoV-2 (COVID-19 ) mRNA-1273 vaccine Preston MAILE [facility] Comment on above: Reason for Medicatio n: Prophylaxis 12-04-2020 COVID-19, mRNA, LNP- S, PF, 100 mcg or 50 mcg dose Preston GR [facility] Comment on above: Reason for Medicatio n: Other (see comment) 11-06-2020 COVID-19, mRNA, LNP- S, PF, 100 mcg or 50 mcg dose Preston GR [facility] Comment on above: Reason for Medicatio n: Other (see comment) Payers Date Payer Category Payer Medicare [id number] 1958 Self-pay [id number] 1958 Unknown [id number] 1950 Unknown [id number] 2.16.84 [id number] 1950 Unknown [id number] 2.16.84 [id number] 1950 Unknown [id number] 2.16.84 [id number] 1950 Unknown [id number] 2.16.84 [id number] 1950 Unknown [id number] 2.16.8 [id number] 1950 Unknown [id number] 2.16.8 [id number] 1950 Unknown [id number] 2.16.8 [id number] Social History Date Type Detail Facility Start: 12-27-2023 Tobacco smoking status Ex-smoker (fi nding) [facility] Tobacco smoking status Never [facility] Sex Assigned At Male [facility] Functional Status Date Assessment Result Facility 12-27-2023 Functional Status N/A [facility] Hospital Discharge instructions 12-27-2023 Note Date & Type Note Facility 12-27-2023 Hospital Discharg e instructions Patient Education 12/27/2023 10:48:04 Transrectal Ultrasound-Guided Prostate Biopsy Transrectal Ultrasound-Guided Prostate Biopsy A transrectal ultrasound-guided prostate biopsy is a procedure to remove samples of prostate tissue for testing. The prostate is a walnut-sized gland that is located below the bladder and in front of the rectum. During this procedure, a small device (probe) is lubricated and put inside the rectum. The probe sends out sound waves that make a picture of the prostate and surrounding tissues (transrectal ultrasound). The images are used to help guide the process of removing the samples. The samples are taken to a lab to be checked for prostate cancer. This procedure is usually done to evaluate the prostate gland of men who have raised (elevated) levels of prostate-specific antigen (PSA), which can be a sign of prostate cancer or prostate enlargement related to aging (benign prostatic hyperplasia, or BPH). Tell a health care provider about: Any allergies you have. All medicines you are taking, including vitamins, herbs, eye drops, creams, and mioi-whu-obwdaur medicines. Any problems you or family members have had with anesthetic medicines. Any bleeding problems you have. Any surgeries you have had. Any medical conditions you have. Any prostate infections you have had. What are the risks? Generally, this is a safe procedure. However, problems may occur, including: Prostate infection. Bleeding from the rectum. Blood in the urine. Allergic reactions to medicines. Damage to surrounding structures such as blood vessels, organs, or muscles. Difficulty passing urine. Nerve damage. This is usually temporary. What happens before the procedure? Medicines Ask your health care provider about: Changing or stopping your regular medicines. This is especially important if you are taking diabetes medicines or blood thinners. Taking medicines such as aspirin and ibuprofen. These medicines can thin your blood. Do not take these medicines unless your health care provider tells you to take them. Taking klrn-skp-gtyufaf medicines, vitamins, herbs, and supplements. General instructions Follow instructions from your health care provider about eating and drinking. In most instances, you will not need to stop eating and drinking completely before the procedure. You will be given an enema. During an enema, a liquid is injected into your rectum to clear out waste. You may have a blood or urine sample taken. Ask your health care provider what steps will be taken to help prevent infection. These steps may include: ?Washing skin with a germ-killing soap. ?Taking antibiotic medicine. If you will be going home right after the procedure, plan to have a responsible adult: ?Take you home from the hospital or clinic. You will not be allowed to drive. ?Care for you for the time you are told. What happens during the procedure? An IV will be inserted into one of your veins. You will be given one or both of the following: ?A medicine to help you relax (sedative). ?A medicine to numb the area (local anesthetic). You will be placed on your left side, and your knees will be bent toward your chest. A probe with lubricated gel will be placed into your rectum, and images will be taken of your prostate and surrounding structures. Numbing medicine will be injected into your prostate. A biopsy needle will be inserted through your rectum or perineum and guided to your prostate using the ultrasound images. Prostate tissue samples will be removed, and the needle and probe will then be removed. The biopsy samples will be sent to a lab to be tested. The procedure may vary among health care providers and hospitals. What happens after the procedure? Your blood pressure, heart rate, breathing rate, and blood oxygen level will be monitored until you leave the hospital or clinic. You may have some discomfort in the rectal area. You will be given pain medicine as needed. If you were given a sedative during the procedure, it can affect you for several hours. Do not drive or operate machinery until your health care provider says that it is safe. It is up to you to get the results of your procedure. Ask your health care provider, or the department that is doing the procedure, when your results will be ready. Keep all follow-up visits. This is important. Summary A transrectal ultrasound-guided biopsy removes samples of tissue from your prostate using ultrasound-guided sound waves to help guide the process. This procedure is usually done to evaluate the prostate gland of men who have raised (elevated) levels of prostate-specific antigen (PSA), which can be a sign of prostate cancer or prostate enlargement related to aging. After your procedure, you may feel some discomfort in the rectal area. Plan to have a responsible adult take you home from the hospital or clinic, and follow up with your health care provider for your results. This information is not intended to replace advice given to you by your health care provider. Make sure you discuss any questions you have with your health care provider. Document Revised: 03/16/2022 Document Reviewed: 03/16/2022 [employer] Education 2022 [employer] Follow Up Care 12/22/2023 13:26:36 With:MAILE ESPINOSA, Preston Mahoney, URL Address: [address] [place] [id number] When: Unknown [facility] Evaluation + Plan note Note Date & Type Note Facility Evaluation + Plan note Future Appointments Appointment Date:01/31/2024 09:15:00 AM Scheduled Provider:Preston GR MD Location:[facility] Appointment Type:URO Office Visit [facility] Hospital course Narrative Note Date & Type Note Facility Hospital course Narrative No data available for this section [facility] Progress note Note Date & Type Note Facility Progress note No data available for this section [facility] Summary Purpose Family History No Family History Records Found No data available for this section No Family History Records FoundNo Family History Records Found Advance Directives No Advanced Directives Records FoundNo Advanced Directives Records FoundNo Advanced Directives Records Found Additional Source Comments (unrecognized sect ion and content) No Status Records FoundNo Status Records FoundNo Status Records Found INFORMATION SOURCE (unrecogn ized section and content) DATE CREATED AUTHOR 12/09/2022 [facility] DATE CREATED AUTHOR AUTHOR'S ORGANIZ ATION 01/03/2024 [facility] EPIC DATE CREATED AUTHOR AUTHOR'S ORGANIZ ATION 01/07/2024 [facility] Patient Care team informatio n (unrecognized section and content) Personnel Name: Luis Miramontes MD Address: Address: [address] [place] [address] FOR RECORDS PERTAINING TO PATIENTS WHO ARE [...] BE BASED ON THE PRIMARY CLINICAL RECORDS. [employer] [facility]. provides no warranty or guarantee of the accuracy or completeness of information in this document.
== END 2024-01-19 12:26 | disposition home or self-care (01) ==
LOC: PST 12:26
PROVIDERS: PCP Family Medicine; Visit Provider Urology
DX: Z01.818 Encounter for other preprocedural examination (principal); R97.20 Elevated prostate specific antigen [PSA]; N40.2 Nodular prostate without lower urinary tract symptoms

== ENCOUNTER 2024-02-07 07:20 | Day surgery (SDC) | payer MEDICARE, OTHER, SELFPAY ==
--- OUTSIDE RECORDS SUMMARY | 2024-02-07 07:23 | XMS_ITS | CCD ---
Author Organization [facility] Care Team Providers Care District Claims Manager Name Role Phone FE ., DR SMITH Admitting Unavailable HOY ., DR SMITH Attending Unavailable HOY ., DR SMITH Primary Care Unavailable HOY ., DR SMITH Admitting Unavailable HOY ., DR SMITH Attending Unavailable HOY ., DR SIMTH Primary Care Unavailable HOY ., DR SMITH Consulting Unavailable HOY ., DR SMITH Admitting Unavailable HOY ., DR SMITH Attending Unavailable HOY ., DR SMITH Primary Care Unavailable MUSHTAQY ., DR SMITH Consulting Unavailable Luis Miramontes Primary Care Physician [phone] PENNIE DICKERSON Attending Unavailable Preston GR Attending Unavailable Preston GR Attending Unavailable Luis Miramontes Referring Unavailable Preston GR Attending Unavailable Allergies Allergy Classification Reported Allergen(s) Allergy Type Date of Onset Reaction(s) Facility (1 source) Unable to obtain; Translations: [Unable to obtain] Propensity to adverse reactions (disorder) [facility] Repository Medications Current Medications Medication Drug Class(es) [...] procedure., # 14 tab(s), Refills(s) 0, Pharmacy: [facility]/pharmacy #[id number], 178, cm, 12/27/23 10:08:00 EDT, Height/Length [...] source) Long-term current use of aspirin; 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 Ambulatory Visit Summaryon 0 12-27-2023 [...] Preston GR MD Where: [facility] Formson 12-27-2023 Forms [id number] [facility] Patient Educationon 12-27-19 24 Patient [...] including vitamins, herbs, eye drops, creams, and dngd-eko-pmcgsjl medicines. ? Any problems you or family [...] tells you to take them. ? Taking zprw-cbq-asmgvhn medicines, vitamins, herbs, and supplements. General instructions [...] with y (more content not included)... Normal [facility] Physician Referralon 024 Physician Referral [id number] .00TIFF Normal [facility] Screenson 12-27-2023 Screens [id number] .00TIFF Normal [facility] Urology Office/Clinic Noteon 12-27-2023 Urology Office/Clinic Note [...] See #1 3. Aspirin long-term use (Z79.82: [facility] (current) use of aspirin) Will need held prior to procedures. Follow-up With When Contact Information MAILE ESPINOSA, Preston Mahoney, URL [address] [place] [address]- Additional Instructions: Schedule TRUS/bx under local Patient [...] (COVID-19) mRNA-1273 (more content not included)... Normal [facility] Comment on above: Result Comment: Elec tronically Signed By: Preston GR MD\.br\Date and Time Signed: 12/27/23 10:59 EDT\.br\Electronically Co-Signed By: Leonela Gutierrez\.br\Date and Time Co-Signed: 12/27/23 10:56 EDT OCC BLD IMMUNO SCREENon OCCULT BLOOD Negative Normal NEGATIVE [facility] Comment on above: Performed By: #### O BSCRN #### [facility] [address] [place] [address] Dr. Sylvia Ham CBC AUTO DIFFon 11-26-2022 BASO # 0.0 103/ul Normal 0.0-0.1 [facility] Comment on above: Performed By: #### C BC #### [facility] [address] [place] [address] Dr. Sylvia Ham Basophils/100 WBC (Bld) 0.4 % Normal 0.2-2.0 [facility] Comment on above: Performed By: #### C BC #### [facility] [address] [place] [address] Dr. Sylvia Ham EO # 0.1 103/ul Normal 0.0-0.7 [facility] Comment on above: Performed By: #### C BC #### [facility] [address] [place] [address] Dr. Sylvia Ham Eosinophils/100 WBC (Bld) 1.1 % Normal 0.9-7.0 [facility] Comment on above: Performed By: #### C BC #### [facility] [address] [place] [address] Dr. Sylvia Ham Erythrocyte distribution width (RBC) [Ratio] 12.8 % Normal 11.0-15.0 [facility] Comment on above: Performed By: #### C BC #### [facility] [address] [place] [address] Dr. Sylvia Ham Hematocrit (Bld) [Volume fraction] 43.6 % Normal 42.0-54.0 [facility] Comment on above: Performed By: #### C BC #### [facility] [address] [place] [address] Dr. Sylvia Ham Hemoglobin (Bld) [Mass/Vol] 15.1 g/dL Normal 14.0-18.0 [facility] Comment on above: Performed By: #### C BC #### [facility] [address] [place] [address] Dr. Sylvia Ham IG # 0.01 10e3/ul Normal 0.00-0.03 [facility] Comment on above: Performed By: #### C BC #### [facility] [address] [place] [address] Dr. Sylvia Ham IG % 0.1 % Normal 0.0-0.5 [facility] Comment on above: Performed By: #### C BC #### [facility] [address] [place] [address] Dr. Sylvia Ham LYMPH # 2.2 103/ul Normal 1.2-3.8 [facility] Comment on above: Performed By: #### C BC #### [facility] [address] [place] [address] Dr. Sylvia Ham Lymphocytes/100 WBC (Bld) 26.9 % Normal 20.5-60.0 [facility] Comment on above: Performed By: #### C BC #### [facility] [address] [place] [address] Dr. Sylvia Ham MANUAL DIFF REQ NO Normal [facility] Comment on above: Performed By: #### C BC #### [facility] [address] [place] [address] Dr. Sylvia Ham MCH (RBC) [Entitic mass] 32.7 pg Normal 25.9-34.0 [facility] Comment on above: Performed By: #### C BC #### [facility] [address] [address] [address] Sylvia Ham MCHC (RBC) [Mass/Vol] 34.6 g/dL Normal 29.9-35.2 [facility] Comment on above: Performed By: #### C BC #### [facility] [address] [address] [address] Sylvia Ham MCV (RBC) [Entitic vol] 94.4 fL Critically high 80.0-94.0 [facility] Comment on above: Performed By: #### C BC #### [facility] [address] [place] [address] Dr. Sylvia Ham MONO # 0.7 103/ul Normal 0.3-0.8 [facility] Comment on above: Performed By: #### C BC #### [facility] [address] [place] [address] Dr. Sylvia Ham Monocytes/100 WBC (Bld) 9.3 % Normal 1.7-12.0 [facility] Comment on above: Performed By: #### C BC #### [facility] [address] [place] [address] Dr. Sylvia Ham NEUT # 5.0 103/ul Normal 1.4-6.5 [facility] Comment on above: Performed By: #### C BC #### [facility] [address] [place] [address] Dr. Sylvia Ham Neutrophils/100 WBC (Bld) 62.2 % Normal 43.0-75.0 [facility] Comment on above: Performed By: #### C BC #### [facility] [address] [place] [address] Dr. Sylvia Ham Platelet mean volume (Bld) [Entitic vol] 11.4 fL Normal 9.5-13.5 [facility] Comment on above: Performed By: #### C BC #### [facility] [address] [address] [address] Sylvia Ham PLT 189 103/ul Normal 150-450 [facility] Comment on above: Performed By: #### C BC #### [facility] [address] [address] [address] Sylvia Ham RBC 4.62 106/ul Critically low 4.70-6.10 [facility] Comment on above: Performed By: #### C BC #### [facility] [address] [address] [address] Sylvia Ham WBC 8.0 103/ul Normal 4.0-11.0 [facility] Comment on above: Performed By: #### C BC #### [facility] [address] [place] [address] Dr. Sylvia Ham FREE T3on 11-26-2022 FREE T3 2.47 pg/mlL Normal 2.18-3.98 [facility] Comment on above: Performed By: #### L IPID, TSH, CMP, T4, FT3 #### [facility] [address] [place] [address] Dr. Sylvia Ham GLYCOHEMOGLOBIN A1Con 2022 ADA RECOMMENDATION SEE BELOW Normal [facility] Comment on above: Result Comment: ADA RECOMMENDED LIMIT 4.0 - 6.0 ADA THERAPEUTIC TARGET < 7.0 ACTION SUGGESTED > 7.0 Performed By: #### A 1C #### [facility] [address] [place] [address] Dr. Sylvia Ham Glucose [Mass/Vol] 105 mg/dL Normal [facility] Comment on above: Performed By: #### A 1C #### [facility] [address] [place] [address] Dr. Sylvia Ham HbA1c (Bld) [Mass fraction] 5.3 % Normal 4.5-6.2 [facility] Comment on above: Performed By: #### A 1C #### [facility] [address] [place] [address] Dr. Sylvia Ham LIPID PROFILEon 11-26-2022 CHOL-HDL RATIO NORM SEE BELOW Normal [facility] Comment on above: Result Comment: 3.3 - 4.4 LOW RISK 4.4 - 7.1 AVERAGE RISK 7.1 - 11.0 MODERATE RISK >11.0 HIGH RISK Performed By: #### L IPID, TSH, CMP, T4, FT3 #### [facility] [address] [address] [address] Sylvia Ham Cholesterol [Mass/Vol] 164 mg/dL Normal <=200 [facility] Comment on above: Performed By: #### L IPID, TSH, CMP, T4, FT3 #### [facility] [address] [address] [address] Sylvia Ham Cholesterol in HDL [Mass/Vol] 55 mg/dL Normal 40-60 [facility] Comment on above: Performed By: #### L IPID, TSH, CMP, T4, FT3 #### [facility] [address] [address] [address] Sylvia Ham Cholesterol in LDL [Mass/Vol] 98.0 mg/dL Normal [facility] Comment on above: Performed By: #### L IPID, TSH, CMP, T4, FT3 #### [facility] [address] [address] [address] Sylvia Ham Cholesterol.total/Cho lesterol in HDL [Mass ratio] 3.0 {ratio} Normal [facility] Comment on above: Performed By: #### L IPID, TSH, CMP, T4, FT3 #### [facility] [address] [address] [address] Sylvia Ham HDL NORMAL > or = 60 mg/dl - LO W CARDIOVASCULAR RISK <40 mg/dl - HIGH CARDIOVASCULAR RISK Normal [facility] Comment on above: Performed By: #### L IPID, TSH, CMP, T4, FT3 #### [facility] [address] [address] [address] Sylvia Ham LDL CALC NORMAL SEE BELOW Normal [facility] Comment on above: Result Comment: <100 mg/dl OPTIMAL 100 - 129 mg/dl NEAR OR ABOVE OPTIMAL 130 - 159 mg/dl BORDERLINE HIGH 160 - 189 mg/dl HIGH >190 mg/dl VERY HIGH Performed By: #### L IPID, TSH, CMP, T4, FT3 #### [facility] [address] [address] [address] Sylvia Ham Triglyceride [Mass/Vol] 55 mg/dL Normal <=150 [facility] Comment on above: Performed By: #### L IPID, TSH, CMP, T4, FT3 #### [facility] [address] [place] [address] Dr. Sylvia Ham VLDL CALC 11.0 mg/dL Normal [facility] Comment on above: Performed By: #### L IPID, TSH, CMP, T4, FT3 #### [facility] [address] [place] [address] Dr. Sylvia Ham PROF 14(COMP METB)on 023 Albumin [Mass/Vol] 3.8 g/dL Normal 3.4-5.0 [facility] Comment on above: Performed By: #### L IPID, TSH, CMP, T4, FT3 #### [facility] [address] [place] [address] Dr. Sylvia Ham Albumin/Globulin [Mass ratio] 1.3 {ratio} Normal [facility] Comment on above: Performed By: #### L IPID, TSH, CMP, T4, FT3 #### [facility] [address] [place] [address] Dr. Sylvia Ham ALP [Catalytic activity/Vol] 66 U/L Normal 46-116 [facility] Comment on above: Performed By: #### L IPID, TSH, CMP, T4, FT3 #### [facility] [address] [place] [address] Dr. Sylvia Ham ALT [Catalytic activity/Vol] 29 U/L Normal 16-63 [facility] Comment on above: Performed By: #### L IPID, TSH, CMP, T4, FT3 #### [facility] [address] [place] [address] Dr. Sylvia Ham Anion gap [Moles/Vol] 9.7 mmol/L Normal [facility] Comment on above: Performed By: #### L IPID, TSH, CMP, T4, FT3 #### [facility] [address] [place] [address] Dr. Sylvia Ham AST [Catalytic activity/Vol] 25 U/L Normal 15-37 [facility] Comment on above: Performed By: #### L IPID, TSH, CMP, T4, FT3 #### [facility] [address] [address] [address] Sylvia Ham Bilirubin [Mass/Vol] 0.6 mg/dL Normal 0.2-1.0 [facility] Comment on above: Performed By: #### L IPID, TSH, CMP, T4, FT3 #### [facility] [address] [address] [address] Sylvia Ham Calcium [Mass/Vol] 9.2 mg/dL Normal 8.5-10.1 [facility] Comment on above: Performed By: #### L IPID, TSH, CMP, T4, FT3 #### [facility] [address] [address] [address] Sylvia Ham Chloride [Moles/Vol] 105 mmol/L Normal 98-107 [facility] Comment on above: Performed By: #### L IPID, TSH, CMP, T4, FT3 #### [facility] [address] [place] [address] Dr. Sylvia Ham CO2 [Moles/Vol] 30.0 mmol/L Normal 21.0-32.0 [facility] Comment on above: Performed By: #### L IPID, TSH, CMP, T4, FT3 #### [facility] [address] [place] [address] Dr. Sylvia Ham Creatinine [Mass/Vol] 0.84 mg/dL Normal 0.70-1.30 [facility] Comment on above: Performed By: #### L IPID, TSH, CMP, T4, FT3 #### [facility] [address] [place] [address] Dr. Sylvia Ham EGFR-AF IRISH >60 Normal >=60 [facility] Comment on above: Performed By: #### L IPID, TSH, CMP, T4, FT3 #### [facility] [address] [place] [address] Dr. Sylvia Ham EGFR-NON AF IRISH >60 Normal >=60 [facility] Comment on above: Performed By: #### L IPID, TSH, CMP, T4, FT3 #### [facility] [address] [place] [address] Dr. Sylvia Ham Globulin (S) [Mass/Vol] 3.0 g/dL Normal [facility] Comment on above: Performed By: #### L IPID, TSH, CMP, T4, FT3 #### [facility] [address] [place] [address] Dr. Sylvia Ham Glucose [Mass/Vol] 107 mg/dL Critically high 74-106 [facility] Comment on above: Performed By: #### L IPID, TSH, CMP, T4, FT3 #### [facility] [address] [place] [address] Dr. Sylvia Ham Potassium [Moles/Vol] 4.7 mmol/L Normal 3.5-5.1 [facility] Comment on above: Performed By: #### L IPID, TSH, CMP, T4, FT3 #### [facility] [address] [place] [address] Dr. Sylvia Ham Protein [Mass/Vol] 6.8 g/dL Normal 6.4-8.2 [facility] Comment on above: Performed By: #### L IPID, TSH, CMP, T4, FT3 #### [facility] [address] [place] [address] Dr. Sylvia Ham Sodium [Moles/Vol] 140 mmol/L Normal 136-145 [facility] Comment on above: Performed By: #### L IPID, TSH, CMP, T4, FT3 #### [facility] [address] [place] [address] Dr. Sylvia Ham Urea nitrogen [Mass/Vol] 20.0 mg/dL Critically high 7.0-18.0 [facility] Comment on above: Performed By: #### L IPID, TSH, CMP, T4, FT3 #### [facility] [address] [place] [address] Dr. Sylvia Ham Urea nitrogen/Creatinine [Mass ratio] 23.8 mg/mg Normal [facility] Comment on above: Performed By: #### L IPID, TSH, CMP, T4, FT3 #### [facility] [address], [place] [address] Dr. Sylvia Ham T4on 11-26-2022 T4 [Mass/Vol] 7.60 ug/dL Normal 4.50-12.[address] [facility] Comment on above: Performed By: #### L IPID, TSH, CMP, T4, FT3 #### [facility] [address] [address] [address] Sylvia Ham TSHon 11-26-2022 TSH 2.833 uIU/mL Normal 0.358-3.[address] [facility] Comment on above: Performed By: #### L IPID, TSH, CMP, T4, FT3 #### [facility] [address] [address] [address] Sylvia Ham Vital Signs Date Time Vital Sign Value Performing Clinician Facility 12-27-2023 10:00-0400 Blood Pressure Location Preston GR [facility] 12-27-2023 10:00-0400 Body temperature 98.24 [degF] Preston GR [facility] 12-27-2023 10:00-0400 Diastolic blood pressure 75 mm[Hg] Preston GR [facility] 12-27-2023 10:00-0400 Heart rate 101 /min Preston GR [facility] 12-27-2023 10:00-0400 Respiratory rate 18 /min Preston GR [facility] 12-27-2023 10:00-0400 Systolic blood pressure 138 mm[Hg] Preston GR [facility] Encounters Encounter Date Encounter Type Care Provider Facility Start: 02-21-2024 ambulatory Preston Laoi ty:[facility] Start: 02-07-2024 ambulatory Preston GR Facili ty:[id number] Start: 01-03-2024 End: 01-03-2024 ambulatory PENNIE DIKCERSON Not Available Start: 12-27-2023 End: 12-28-2023 ambulatory Prestonbruce GR Facility:[facility] Start: 12-27-2023 End: 12-27-2023 Patient encounter procedure Preston GR [facility] Start: 12-17-2023 ambulatory Preston GR Facility :[facility] [place] Start: 12-07-2022 End: 12-07-[address] LUIS MIRAMONTES . Facility: Start: 11-26-2022 End: 11-27-[address] LUIS MIRAMONTES . Facility:[facility] Start: 02-15-[address] LUIS MIRAMONTES . Facili ty:[facility] Procedures Date Procedure Procedure Detail Performing Clinician Start: 11-26-[address] SMITH MIRAMONTES . Comment on above: Performed By: #### P [facility] #### [facility] [address] [place] [address] Dr. Sylvia Ham Immunizations Immunization Date Immunization Notes Care Provider Carissa gaytan 08-13-2021 SARS-CoV-2 (COVID-19 ) mRNA-1273 vaccine Preston MAILE [facility] Comment on above: Reason for Medicatio n: Prophylaxis 12-04-2020 COVID-19, mRNA, LNP- S, PF, 100 mcg or 50 mcg dose Preston GR [facility] Comment on above: Reason for Medicatio n: Other (see comment) 11-06-2020 COVID-19, mRNA, LNP- S, PF, 100 mcg or 50 mcg dose Preston GR [facility] Comment on above: Reason for Medicatio n: Other (see comment) Payers Date Payer Category Payer Medicare [id number] 1958 Self-pay [id number] 1958 Unknown [id number] 1950 Unknown [id number] 2.16.84 [id number] 1950 Unknown [id number] 2.16.84 [id number] 1950 Unknown [id number] 2.16.84 [id number] 1950 Unknown [id number] 2.16.84 [id number] 1950 Unknown [id number] 2.16.8 [id number] 1950 Unknown [id number] 2.16.8 [id number] 1950 Unknown [id number] 2.16.8 [id number] Social History Date Type Detail Facility Start: 12-27-2023 Tobacco smoking status Ex-smoker (fi nding) [facility] Tobacco smoking status Never [facility] Sex Assigned At Male [facility] Functional Status Date Assessment Result Facility 12-27-2023 Functional Status N/A [facility] Hospital Discharge instructions 12-27-2023 Note Date & [...] including vitamins, herbs, eye drops, creams, and jdnf-sdf-zvgecru medicines. Any problems you or family members [...] provider tells you to take them. Taking qymg-rek-onfbczi medicines, vitamins, herbs, and supplements. General instructions [...] provider. Document Revised: 03/16/2022 Document Reviewed: 03/16/2022 [employer] Patient Education 2022 [employer] Follow Up Care 12/22/2023 13:26:36 With:MAILE ESPINOSA, Preston Mahoney, URL Address: [address] [place] [address]- When: Unknown [facility] Evaluation + Plan note Note Date & Type Note Facility Evaluation + Plan note Future Appointments Appointment Date:01/31/2024 09:15:00 AM Scheduled Provider:Preston GR MD Location:[facility] Appointment Type:URO Office Visit [facility] Hospital course Narrative Note Date & Type Note Facility Hospital course Narrative No data available for this section [facility] Progress note Note Date & Type Note Facility Progress note No data available for this section [facility] Summary Purpose Family History No Family History [...] section and content) DATE CREATED AUTHOR 12/09/2022 [facility] pital DATE CREATED AUTHOR AUTHOR'S ORGANIZ ATION 01/03/2024 [facility] EPIC DATE CREATED AUTHOR AUTHOR'S ORGANIZ ATION 01/07/2024 [facility] Patient Care team informatio n (unrecognized section and content) Personnel Name: Luis Miramontes MD Address: Address: [address] [place] [address] FOR RECORDS PERTAINING TO PATIENTS WHO ARE [...] BE BASED ON THE PRIMARY CLINICAL RECORDS. [facility]. provides no warranty or guarantee of the accuracy or completeness of information in this document.
[2024-02-07] MEDS: GENTAMICIN SULFATE 80 MG/2 ML VIAL 120 MG IM (07:43)
--- NOTE | 2024-02-07 08:02 | US_ITS ---
The [address] [address] Patient Name: ANTONIETA SINGLETARY MRN: [id number] date: 1950 Sex: M Assigned Patient Location: [facility] Current Patient Location: [facility] Accession/Order Number: [id number] Exam Date: 02/07/2024 08:05 Report Date: 02/07/2024 08:50 At the request of: FELICIA CARLOS Procedure: US prostate EXAMINATION: US prostate HISTORY: Elevated PSA COMPARISON: No relevant comparison available. TECHNIQUE: Ultrasound exam for the prostate with an endorectal transducer was performed utilizing real-time and color duplex Doppler sonography. Biopsy was performed by Dr. Carlos FINDINGS: The prostate gland is normal in size measuring 4.0 x 2.9 x 4.1 cm with a volume of 24.8 mL. Homogeneous echotexture with no focal mass. No definite calcifications. Mildly lobular contour. A needle is seen traversing the prostate gland and multiple regions. US/US prostate IMPRESSION: Images from an ultrasound guided prostate biopsy Electronically authenticated by: DELMER FELIX Date: 02/07/2024 08:50
[2024-02-07 08:14] VITALS: BP 135/75; PULSE 74; O2SAT 95
[2024-02-07] MEDS: LIDOCAINE 2% JELLY 20 ML UR (08:14)
[2024-02-07] MEDS: LIDOCAINE HCL 1% 100 MG/10 ML MDV INJ (08:16)
[2024-02-07 08:28] VITALS: BP 153/88; PULSE 71; O2SAT 95
--- NOTE | 2024-02-07 08:32 | P.URON_ITS ---
Urology Surgery Operative Note Operative Note Procedure Date: 02/07/24 Time Out Performed: yes Pre-op Diagnosis: Elevated PSA and prostate induration Post-op Diagnosis: same as pre-op Procedures performed: 1. Transrectal ultrasound of the prostate. 2. Transrectal prostate needle biopsies Anesthesia: local and other (Shavon prostatic block) Primary Surgeon: Preston Carlos Complications: None Estimated blood loss (mL): 20 Findings: Hypoechoic area right base to apex Specimens: Prostate needle biopsies Indications for Procedures: This gentleman has an elevated PSA of 5.3 with a 14% free fraction. He also has a palpable induration at the right base to apex. He now presents for prostate ultrasound and biopsies. He has signed an informed consent after risks were explained. Detailed description of Procedure: The patient was kept on the gurney bed and brought to the endoscopy suite. He was rotated in the left lateral decubitus position. Timeout was done by all parties in the room. We all agreed upon the patient's identification and the planned procedures for this patient. 2% lidocaine gel was passed per rectum. The ultrasound probe was passed per rectum. The prostate was scanned in the transverse and longitudinal views. The volume was calculated to be 25 g. There was a hypoechoic area at the right base to apex. I started by applying a 1% plain Abe prostatic block. I then passed a spring- loaded needle through the ultrasound probe and did prostate biopsies. I started at the left base and went towards the apex. I divided up into 4 levels and from each level took 2 cores. I then did a similar maneuver on the right side except at the apex, R4 I took 4 biopsies. At the end of the procedure we had 18 satisfactory cores. The probe was then removed. He was then discharged to home. He was reminded to continue his quinolone antibiotic course. He also was informed if he gets a fever near 101 and/or shaking chills that will not stop then he should present to the ER.
== END 2024-02-07 08:40 | disposition home or self-care (01) ==
PROVIDERS: PCP Family Medicine; Visit Provider Urology
PROC: (CPT 55700; principal; 2024-02-07 08:00)
DX: C61 Malignant neoplasm of prostate (principal); R97.20 Elevated prostate specific antigen [PSA]; N40.2 Nodular prostate without lower urinary tract symptoms; R47.01 Aphasia; G83.30 Monoplegia, unspecified affecting unspecified side; E78.5 Hyperlipidemia, unspecified; F32.A Depression, unspecified; Z87.891 Personal history of nicotine dependence; Z79.82 Long term (current) use of aspirin; R35.1 Nocturia
CPT/HCPCS: 55700; 76872